=== PATIENT | female | born 1975 | race Caucasian/White ===

== ENCOUNTER → 2023-04-28 14:58 | Outpatient (CLI) | payer OTHER, SELFPAY ==
--- NOTE | 2023-04-28 15:04 | DI.CT.S_ITS ---
PROCEDURE: CT LUMBAR SPINE WO CON INDICATIONS: Spinal stenosis, lumbar region TECHNIQUE: Noncontrast 3 mm thick sections acquired from the T12 level to the sacrum. Sagittal and coronal reformats were constructed. For radiation dose reduction, the following was used: automated exposure control. COMPARISON: None. FINDINGS: Image quality: Excellent. Bones: There is normal bony alignment. No acute vertebral body compression fractures. No suspicious lytic or blastic bony lesions. No pars defects. T12-L1: Mild disc height loss. L1-L2: Mild disc height loss. L2-L3: Epidural lipomatosis and mild ligamentum flavum hypertrophy. L3-L4: Epidural lipomatosis and mild ligamentum flavum hypertrophy. L4-L5: Moderate disc height loss. Vacuum disc phenomenon. Broad-based disc bulge, with superimposed asymmetric disc bulge of the right subarticular space. Moderate spinal canal narrowing. Mild left neural foraminal narrowing. L5-S1: Moderate disc height loss, with disc osteophyte complex. Left greater than right facet arthrosis. Soft tissues: No retroperitoneal masses or hematomas. Visualized aorta is normal in caliber. IMPRESSION: Moderate spinal canal narrowing at L4-5 due to degenerative disc disease. [id number] degenerative changes, as above. Dictated by: Ariel Nascimento M.D. on 04/28/2023 at 15:39 Approved by: Ariel Nascimento M.D. on 04/28/2023 at 15:44
== END ==
PROVIDERS: Referring Provider Orthopaedic Surgery Orthopaedic Surgery of the Spine; Visit Provider Orthopaedic Surgery Orthopaedic Surgery of the Spine
DX: M48.061 Spinal stenosis, lumbar region without neurogenic claudication (principal); M51.36 Other intervertebral disc degeneration, lumbar region; M47.816 Spondylosis without myelopathy or radiculopathy, lumbar region; M47.817 Spondylosis without myelopathy or radiculopathy, lumbosacral region
CPT/HCPCS: 72131

== ENCOUNTER 2023-06-07 05:47 | Inpatient (IN) | payer OTHER, SELFPAY ==
[2023-05-31 13:39] VITALS: BMI 47.7
[2023-06-07] VITALS (13 sets, daily range): BP systolic 100–131; BP diastolic 51–81; PULSE 66–96; RESP 12–18; TEMP 36.2–37.3; O2SAT 93–98; BMI 48.1
[2023-06-07] MEDS: LACTATED RINGERS 1,000 ML 42 ML IV (07:11)
--- NOTE | 2023-06-07 07:48 | PM.PREOP ---
Pre-operative Note Interval Note History & Physical reviewed/Exam performed by Physician: Yes Changes to H&P: No
--- NOTE | 2023-06-07 07:52 | P.HP_ITS ---
History of Present Illness History of Present Illness Date Patient Seen: 06/07/23 Time Patient Seen: 07:30 Date of Onset of Symptoms: 06/18/21 Chief complaint: back and leg pain Narrative: Fatimah is a 47 year old woman with chronic back pain. Onset was 09/12/2008 with no known incident. Symptoms improved for 5-6 years, and are now increasing. Patient notes constant low back pain the radiates down left lower extremity. Activities of daily living are difficult. Patient has been utilizing NSAIDS for pain, water aerobics, CBD, ice, and heat. Patient has been attending physical therapy since 12/15/2022. She notes no improvement. [facility] Medical History Anxiety Depression Spondylolisthesis Lumbar post-laminectomy syndrome Chronic sinusitis Pre-diabetes HLD (hyperlipidemia) BUSTER on CPAP Seasonal allergies Sciatica Surgical History History of orthopedic surgery (2002) History of arthroscopy of left shoulder (2004) Hx of laminectomy (2007) Hx of sinus surgery Hx of bariatric surgery (2003) Hx of cholecystectomy Hx of appendectomy History of surgery (2019) Social History household members: spouse and family Smoking Status: Never smoker alcohol intake: former Meds Home Medications and Allergies Home Medications Medication Instructions Recorded Confirmed Type acetaminophen 500 mg tablet 1,000 mg PO TID-QID 05/31/23 06/07/23 History bupropion HCl 450 mg 24 hr tablet, 450 mg PO BEDTIME 05/31/23 06/07/23 History extended release buspirone 30 mg tablet 30 mg PO BID 05/31/23 06/07/23 History cetirizine 10 mg tablet (Zyrtec) 10 mg PO DAILY 05/31/23 06/07/23 History cholestyramine-aspartame 4 gram 4 g PO BID 05/31/23 06/07/23 History oral powder (Cholestyramine Light) fenofibrate 160 mg tablet 160 mg PO DAILY 05/31/23 06/07/23 History pregabalin 200 mg capsule 200 mg PO TID 05/31/23 06/07/23 History propranolol 40 mg tablet 40 mg PO BID 05/31/23 06/07/23 History sertraline 100 mg tablet 100 mg PO BEDTIME 05/31/23 06/07/23 History tizanidine 4 mg tablet 4 mg PO TID 05/31/23 06/07/23 History atorvastatin 40 mg tablet 40 mg PO DAILY 06/07/23 06/07/23 History Allergies Allergy/AdvReac Type Severity Reaction Status Date / Time soy Allergy Severe Vomiting, Verified 06/07/23 06:28 diarrhea Sulfa (Sulfonamide Allergy Severe Anaphylaxis Verified 06/07/23 06:28 Antibiotics) latex Allergy Intermediate Rash Verified 06/07/23 06:28 Review of Systems Review of Systems ROS: Yes All systems reviewed with the patient and are negative except as otherwise documented Exam Vital Signs (past 8 hours): - 06/07/23 06:50 Temperature 97.2 F L Pulse Rate 96 H Respiratory Rate 17 Blood Pressure 120/71 Pulse Oximetry 96 Oxygen Delivery Method Room Air Oxygen Delivery Method Room Air Back/Spine/Pelvis Other: painful lumbar range of motion, worst at L-S junction. Surgical scar from previous lumbar surgery well healed, no erythema, induration. Assessment & Plan Assessment & Plan narrative: Patient had history of L4-5 laminectomy in 2008. She has spondylolisthesis at L4-5 level and severe DDD and foramen stenosis at L5-S1. I scheduled her for L4-S1 TLIF. Her surgery request was denied by her insurance. Patient had history of laminectomy at L4-5 with residual spinal stenosis and epidural scarring. She has L4-5 spondylolisthesis at both L4-5 and L5-S1 level. She has been falling recently due to worsening leg weakness not responding to conservative care including PT and medications for over 3 months. She may benefit from decompression and fusion surgery in order to address her spondylolisthesis and spinal stenosis at L4-5, L5-S1 level. Risks for surgery include but not limited to bleeding, infection, nerve/dura/bladder/bowel/blood vessel injury, need for additional procedure, even . Patient understands and would like to proceed with surgery. I scheduled her for L4-S1 TLIF. 15 minutes spent with patient, >50% counseling about her condition, limitations, prognosis.
[2023-06-07] MEDS: CEFAZOLIN VIAL 3 GM in SODIUM CHLORIDE 0.9% 100 ML IV ×3 (07:57→23:47)
--- NOTE | 2023-06-07 08:30 | SUR.OPER ---
Prone on spine table, head in foam head support, padded chest and pelvic supports, gel pad at knees, lower legs supported by pillows; nipples, genitalia and toes free of pressure, arms secured on foam padded arm boards at <90 degrees abduction. Tape over blanket at thigh secured to table.
[2023-06-07] MEDS: BUPIVACAINE LIPOSOME 266 MG/20 ML VIAL INJ (08:37)
[2023-06-07] MEDS: BUPIVACAINE 0.25% (PF) 60 ML, EPINEPHrine 0.15 MG INJ (08:42)
--- NOTE | 2023-06-07 12:00 | DI.RAD.S_ITS ---
PROCEDURE: XR LUMBAR SPINE 2-3V INDICATIONS: L4-5, L5-S1 TLIF ROBOT TECHNIQUE: 2 intraoperative views of the lumbar spine were acquired. COMPARISON: None. FINDINGS: 2 intraoperative spot views of the lumbar spine is performed. IMPRESSION: Intraoperative imaging demonstrates lumbosacral fusion hardware placement. Dictated by: Maximus Staton M.D. on 06/07/2023 at 16:11 Approved by: Maximus Staton M.D. on 06/07/2023 at 16:11
--- NOTE | 2023-06-07 12:12 | P.OP_ITS ---
Operative Date/Time/Diagnoses Date of procedure: 06/07/23 Time of procedure: 07:40 Pre-op diagnosis: 1. L4-5, L5-S1 recurrent disc herniation 2. L4-5, L5-S1 post laminectomy with residual spinal stenosis 3. L4-5, L5-S1 spondylolisthesis 4. Morbid obesity Post-op diagnosis: same Procedure & Clinicians Procedure: 1. L4-5, L5-S1 Postero-lateral and posterior interbody fusion 2. L4-5, L5-S1 interbody cage placement. 3. L4-5, L5-S1 decompressive laminectomy with bilateral facetecomies 4. L4-5, L5-S1 Posterior segmental instrumentation 5. [place] of bone marrow from iliac crest 6. Utilization of microsurgical technique and operating microscope 7. Utilization of robotic assisted navigation Same procedure as scheduled: Yes Indications: Ms. Chun is here for scheduled lumbar fusion procedure. She has equally limiting leg pain, weakness and back pain due to lumbar spondylolisthesis and recurrent disc herniation with history of la minectomy/discectomy in the past at L4-5, L5-S1 level. She failed over 3 months of conservative care including 6 weeks of PT, NSAIDs, muscle relaxant, lyrica. She may benefit from decompression and fusion surgery with laminectomies and total facetectomies for decompression at L4-5, L5-S1 level, which will render her already unstable L4-S1 level grossly unstable and require a fusion procedure at the same time. Patient is scheduled for L4-5, L5-S1 TLIF. Surgeon: Ari Rodriguez Managing Partner [employer] [place]: Nette Segura Click Yes if Unassisted: No Anesthesia Type: General Operative Notes Closure Type: primary Specimen(s): none sent Prosthetic devices, grafts, tissues, transplants, or devices: Globus CREO MIS screws, Rise cages Applied: catheter Estimated Blood Loss (mL): 150 Blood products transfused: none Procedure in detail: Patient was seen in the preoperative area. Risks and benefits of the surgery was discussed with the patient. Informed consent was obtained from the patient and placed in the chart. Surgical site was marked. Patient was taken to the operative room. General anesthesia was administered. Prophylactic antibiotic was given to the patient less than 30 min before the incision was made. Patient was placed into a prone position on the [place] table. Patient's back was then prepped and draped in the sterile fashion. Time-out was performed at this time. After patient was prepped and draped, patient's PSIS was palpated and marked bilaterally. Small 1 cm incision was made over the PSIS for placement of the reference probes. Two trocar was placed into the PSIS 1 on each side. The reference probe was attached to the trocar of the reference apparatus. At this time the C-arm imaging was used to confirm AP and lateral of L4-L5, L5- S1 vertebrae and merged the C-arm imaging using the [employer] navigation system with the CT of the lumbar spine. After successful merging was completed and confirmed, skin marker was used to brittanie out the skin incision using the [employer] robotic arm. Bilateral incision was made at this time. Pre templated trajectory was used and guided using the [employer] robotic navigation system for bilateral L4, L5, S1 pedicle screw placement. This was done by using the robotic arm to guide the high-speed bur to make a cortical entry point. Next a drill was placed also using the robotic arm and guided using the navigation system drilling partially through bilateral L4, L5 and S1 pedicles. Next L4, L5, S1 pedicle screws it was pre templated and measured was placed onto the power scoop driver and inserted into the pedicles bilaterally. After all 6 screws were placed C-arm imaging was taken of both AP and lateral to confirm the placement. Excellent placement of the screws were confirmed and a matched precisely with the pre planned screw placement using the navigation system. MARs retractor was inserted using [employer] guidence. Globus MARS retractors was placed inside the incision and docked onto the L4 and L5 lamina. Using microsurgical technique and operating microscope, a L4, L5 laminectomy and L4-5, L5-S1 facetectomy was performed using a Kerrison rongeur. The laminectomy and facetectomy was performed in order to decompress patient's cauda equina as well as the nerve roots exiting at the L4-5, L5-S1 level. Patient was found have severe lateral recess and neural foramen stenosis which was fully decompressed after the laminectomy facetectomy. Patient was found to significant amount of epidural lipomatosis which was carefully resected during the process of laminectomy and facetectomy. This facilitated additional decompression to the epidural space at L4-5 L5-S1 level. More than 75% of the facets were removed during the process of decompression rendering L4-5, L5-S1 level grossly unstable and required a fusion procedure at the same time you order to address the pre-existing spondylolisthesis as well as the current instability after the decompression. The disc space at L4-5, L5-S1 was identified, and a total diskectomy was performed at L4-5, L5-S1 level. The endplates were decorticated using a rasp and shaver. The total diskectomy and decortication was performed at L4-5, L5-S1 level in order to to accomplish a L4-5, L5-S1 fusion. The local bone from the laminectomy and facetectomy was saved for local bone grafting. After the total diskectomy and decortication was completed, DBM bone graft material was combined with local bone that was harvested earlier. At this time, a separate skin is incision was made over the iliac crest. A Jamshidi needle was inserted into the iliac crest through a separate skin incision. 5 cc of bone marrow aspiration was obtained through the separate skin incision using a Jamshidi needle from the iliac crest. The bone marrow aspiration was combined with local bone and the DBM bone grafting material. The bone grafting material was placed into the L4-5, L5-S1 interbody space along with a expandable cage. The cage was expanded to its maximum height using the torque limiting screwdriver. The disc preparation as well as the cage insertion were also performed under navigation guidance. After the cage was placed, AP and lateral C-arm imaging was taken to confirm placement of the cage and excellent position was confirmed. Globus MARS retractor was inserted and docked onto the L4-5, L5-S1 posterolateral gutter on the right side. Using the power drill, posterior- lateral decortication was performed at L4-5, L5-S1 level until bleeding cortical bone was identified. The remaining bone grafting material was placed into the L4-5, L5-S1 posterior lateral gutter he order to accomplish posterolateral fusion at the L4-5, L5-S1 level. At this time the t[place]ips were attached to the L4, L5, S1 pedicle screw shanks. After measuring the length of the rods, they were inserted into the tulips of the pedicle screws and locked in place using locking caps and torque limiting screwdriver bilaterally. Total 6 caps and 2 titanium rods was used in order to complete the posterior instrumentation construct. After all the hardware was placed, and confirmed with AP and lateral C-arm imaging, the wound was then irrigated with sterile normal saline and packed with Ray-Gabe gauze for 3 min to accomplish hemostasis. After the gauze was removed the deep fascia was closed with #1 Vicryl suture. The subcutaneous layer was closed with 2-0 Vicryl. The skin was closed with skin jude. Patient tolerated the procedure well. There were no complications. Neuro monitoring system was used to monitor patient's neurologic status throughout entire procedure. There was no disturbance of the neural monitoring signals throughout the case. The Operation could not have been safely performed without compromising the technical result or length of the procedure, without the assistance of a skilled surgical sales representative. The surgical sales representative was medically necessary for proper positioning, retraction and manipulation of instruments, proper exposure, surgical preparation, and manipulation of tissue. Complications: none Post-operative Condition: stable Disposition: PACU Plan for aftercare: Admit to inpatient hospital
[2023-06-07] MEDS: HYDROMORPHONE 1 MG INJ IV ×2 (12:36→12:42)
[2023-06-07] MEDS: LACTATED RINGERS 1,000 ML 125 ML IV ×2 (13:37→23:24)
[2023-06-07] MEDS: HYDROMORPHONE 0.5 MG INJ IV ×2 (14:19→16:19)
[2023-06-07] MEDS: ONDANSETRON 4 MG/2 ML INJ IV (14:22)
[2023-06-07] MEDS: hydrOXYzine pamoate 25 MG CAPSULE PO ×2 (14:22→21:10)
[2023-06-07] MEDS: PREGABALIN 50 MG CAPSULE 200 MG PO ×2 (14:22→21:10)
[2023-06-07] MEDS: TIZANIDINE 4 MG TABLET PO ×2 (15:54→21:11)
--- NOTE | 2023-06-07 19:53 | PC.NURSE ---
new admit: tlif w/ Dr Rodriguez. L4 dressing to low back is CDI. patient is a/o, voices needs. has red scratches on her left cheek from tape/tubing from surgery. patient reports 6/10 LBP, medicated w/ PRN dilauded IVP, vistaril, zofran. has own bipap in the room, this was set up by this RN. patient uses this for naps and at NOC. desatting to high 90s. CPOX on, WCTM 1800: tolerated OOB to BSC for BM. took mod/max 1pa to get from laying to sitting, following log roll instructions. denies dizziness or nausea. soft b/p, 100/60's. jenna is patent, will be d/c'd in AM. LR at 125 via PIV. tolerated 1st dose ABX. bed alarm is on, call light w/in reach.
[2023-06-07] MEDS: OXYCODONE IR 10 MG TABLET PO ×2 (19:55→23:39)
[2023-06-07] MEDS: BUSPIRONE 5 MG TABLET 30 MG PO (21:10)
[2023-06-07] MEDS: buPROPion XL 150 MG TAB 450 MG PO (21:10)
[2023-06-07] MEDS: SERTRALINE 50 MG TABLET 100 MG PO (21:10)
[2023-06-08 00:50] VITALS: BP 106/57; RESP 18; TEMP 36.7
[2023-06-08] MEDS: OXYCODONE IR 10 MG TABLET PO ×3 (04:09→13:50)
[2023-06-08] MEDS: HYDROMORPHONE 0.5 MG INJ IV ×4 (05:18→19:44)
[2023-06-08 05:33] LABS: Hematocrit 27.2 % (36-46); Hemoglobin 9.2 g/dL (12.0-16.0)
[2023-06-08 05:46] VITALS: BP 116/63; PULSE 76; RESP 20; TEMP 36.6; O2SAT 95
[2023-06-08 08:00] VITALS: BP 105/54; PULSE 75; RESP 16; TEMP 35.9; O2SAT 95
--- NOTE | 2023-06-08 09:27 | PT.IIE ---
Addendum entered and electronically signed by Kashmir Newman PT 06/08/23 17:02: ISigned Original Note: Addendum entered and electronically signed by Kashmir Newman PT 06/08/23 17:00: Added gait/ambulation goal to include LRAD. Addendum entered and electronically signed by Kashmir Newman PT 06/08/23 11:27: FWW for transfer and gait goals. Original Note: Current Diagnoses Spondylolisthesis, lumbar region (06/07/23) Postlaminectomy syndrome, not elsewhere classified (06/07/23) Surgery Performed Operation Date: 06/07/23 07:45 Actual Procedures p L4-5, L5-S1 TLIF with posterior instrumentation -Robot - Ari Rodriguez MD Surgical History (Last Reviewed 06/07/23 @ 07:52 by Ari Rodriguez MD) History of arthroscopy of left shoulder (2004) History of orthopedic surgery (2002) History of surgery (2019) Hx of appendectomy Hx of bariatric surgery (2003) Hx of cholecystectomy Hx of laminectomy (2007) Hx of sinus surgery Medical History (Last Reviewed 06/07/23 @ 07:52 by Ari Rodriguez MD) Anxiety Chronic sinusitis Depression HLD (hyperlipidemia) Lumbar post-laminectomy syndrome BUSTER on CPAP Pre-diabetes Sciatica Seasonal allergies Spondylolisthesis Physical Therapy Inpatient Evaluation/Re-Eval M1 PT/OT-IP Prior Functional Status Start: 06/08/23 10:40 Freq: NEEDED Status: Active Protocol: Document 06/08/23 10:41 AB (Rec: 06/08/23 11:06 AB [id number]) Medical Review Prior Functional Status Medical History Reviewed Yes Diet/Fluid Consistency Regular Communication Pt is able to express all needs. Mobility and Gait Pt reports she ambulated independently in home but would furniture surf occasionally, and used a walking stick when walking outside. Activities of Daily Living and IADL's Pt is independent with all ADLs and IADLs. 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 Social History Household Members spouse,family Living Arrangements House Number of Floors (Floors) Two Floors Number of Stairs To Enter/Railing? 4 FRANCO with right ascending hand rail Home Environment High Toilet,Walk in Shower Home Equipment Four Wheel Walker,Hand Held Shower Additional Social History Comment Pt reports her can provide 24/7 assist if needed, and she is able to take time off from work. She has a chair lift to get to and from second floor (12-14 steps). Her bed is also adjustable M2 PT-IP Current Condition Start: 06/08/23 10:40 Freq: NEEDED Status: Active Protocol: Document 06/08/23 10:41 AB (Rec: 06/08/23 11:06 AB [id number]) Physical Therapy Current Condition Current Condition Evaluation Date 06/08/23 Treatment Diagnosis s/p lumbar TLIF L4-L5, L5-S1 Onset Date 06/07/23 M3 PT-IP Subjective Start: 06/08/23 10:40 Freq: NEEDED Status: Active Protocol: Document 06/08/23 10:41 AB (Rec: 06/08/23 11:06 AB [id number]) Subjective Physical Therapy Visit Type Type Initial Evaluation Visit Start Time 08:47 Visit Stop Time 09:27 Total Visit Minutes 40 Physical Therapy Visit Comments Patient Comments Pt presents sidelying in bed and is agreeable to PT eval this morning. Therapy Pain Assessment Pain When Pain Assessed During Mobility Pain Present Pain Present Pain Reported Location back Scale Used did not specify on numeric scale Pain Behaviors Facial Grimacing,Wincing Pain Management Techniques Distraction,Re-positioning M4 PT-IP Mobility and Gait Start: 06/08/23 10:40 Freq: NEEDED Status: Active Protocol: Document 06/08/23 10:41 AB (Rec: 06/08/23 11:06 AB [id number]) PT-Bed Mobility Assessment Rolling Type of Rolling Log Rolling Level of Assist Standby Assistance Supine to Sit Supine to Sit Minimal Assistance,Moderate Assistance,1 Person Assistance ,Head of Bed Elevated Sit to Supine Sit to Supine Minimal Assistance,Moderate Assistance,1 Person Assistance Scooting Scooting to Edge of Bed Minimal Assistance PT-Transfer Assessment Sit to and From Stand Sit to and from Stand Standby Assistance,Use of Upper Extremities Equipment Transfer Assistive Device Gait Belt,Front Wheeled Walker Transfers Transfer Destination Bed Transfer Technique ambulated Transfer Ability Level of Assist Standby Assistance,1 Person Assistance,Use of Upper Extremities Comments Mobility Comments The pt is able to perform log roll with SBA, but then required min-modA to get to sitting with PT assisting trunk due to weakness and pain symptoms. Once sitting, the pt denies any dizziness symptoms. She then requires assistance to move legs to get to EOB, as this bed is higher than her bed at home. The pt then performed STS with SBA, with PT providing cues for proper hand placement, and again denies symptoms of dizziness. The pt then ambulated 50ft with FWW and SBA and returned to room. She then requires min-modA to perform log roll back to supine position with PT assisting LEs. The pt is then assisted to a comfortable position in bed with tray table in front, call light within reach, all needs met. RN was notified of findings. Gait Assessment Gait Gait Assistance Required: Standby Assistance Distance (Feet) 50 Assistive Devices Assistive Device Gait Belt,Front Wheeled Walker Gait Deviations General Gait Pattern Decreased Stride Length, Decreased Feet Clearance Factors Limiting Gait Function Factors Limiting Gait Function Decreased Activity Tolerance, Decreased Strength,Pain Comments Gait Comments See mobility comments above. Pt takes shorter steps due to weakness and pain symptoms. Stair Climbing Assessment Comments Stair Climbing Comments Not assessed d/t weakness and fatigue. PT-Balance Assessment Sitting Balance and Reactions Static Sitting Balance Ability Normal Dynamic Sitting Balance Ability Normal Standing Balance and Reactions Static Standing Balance Ability Good Dynamic Standing Balance Ability Good Device Used FWW M5 PT-IP Objective Assessments Start: 06/08/23 10:40 Freq: NEEDED Status: Active Protocol: Document 06/08/23 10:41 AB (Rec: 06/08/23 11:06 AB [id number]) Orientation Orientation/Cognition Level of Alertness Alert Orientation Name,Age,Birthday,Month,Date, Year,Day of Week,Place, Situation Language Function Ability No Deficits Noted Safety Awareness Understands Safety Issues Memory Description No Deficits Noted Gross Range of Motion Upper Extremity ROM Assessment Within Functional Limits Lower Extremity ROM Assessment Within Functional Limits Strength Upper Extremity Strength Assessment Within Functional Limits Lower Extremity Strength Assessment Within Functional Limits M6 PT-IP Treatment Start: 06/08/23 10:40 Freq: NEEDED Status: Active Protocol: Document 06/08/23 10:41 AB (Rec: 06/08/23 11:06 AB [id number]) Physical Therapy Treatment Education Education Provided Precautions,Weight Bearing Status,Post-Op Packet,Safety Brace Education Patient M7 PT-IP Assessment and Plan Start: 06/08/23 10:40 Freq: NEEDED Status: Active Protocol: Document 06/08/23 10:41 AB (Rec: 06/08/23 11:06 AB [id number]) PT Summary Assessment and Plan Potential Rehabilitation Potential Good Summary Impairments Pain,ROM,Strength,Balance,Bed Mobility,Transfers,Gait, Activity Tolerance Assessment Summary Fatimah Chun is a 48 year old female patient who is s/p lumbar TLIF L4-L5, L5-S1 on 06/07/23. She currently requires min-modA x1 to perform bed mobility, but is able to perform STS, transfers and ambulation with FWW and SBA. The pt was able to ambulate up to 50ft this session, but was unable to attempt stairs due to weakness , fatigue and pain symptoms. Based on her current level of function, the pt is expected to continue to progress and is expected to be able to discharge to home with assistance, however discharge disposition should continue to be assessed as pt progresses. She may benefit from skilled PT in the future to improve her post operative outcomes. Goals Bed Mobility Goal Standby Assistance Transfer Goal Independent Gait Goal Independent Gait Distance 100 Other Goals Pt to be able to ascend/ descend 4 steps with right hand rail with SBA to show improving strength and tolerance to activity. Pt to be able to perform bed mobility with independence to show improving level of function. Days to Meet Goals 5 Frequency of Treatment Frequency Of Treatment Twice a Day Treatment Plan Physical Therapy Treatment Plan Bed Mobility Training,Transfer Training,Gait Training, Therapeutic Exercise,Balance Retraining,Post Op Education, Discharge Planning,Hot or Cold Pack,Neuromuscular Re-ed, Coordination Retraining,Manual Therapy Other Recommendations and Next Treatment Bed mobility training, stairs Focus Precautions Lumbar Precautions Log Roll,No Twisting,Limit Bending,Lifting Restriction of 10 lbs,Gait Belt above Incisional Area Weight Bearing Status Weight Bearing Status Weight Bear as Tolerated Recommendations To Nursing Amount of Assist Needed 1 Person Assist Discharge Recommendations PT Discharge Recommendations Home with Assistance Equipment Needed for Home Before FWW Discharge Transportation Needs at Discharge Private Vehicle,Wheelchair/ Cabulance
[2023-06-08] MEDS: PREGABALIN 50 MG CAPSULE 200 MG PO ×3 (09:49→20:15)
[2023-06-08] MEDS: PROPRANOLOL 10 MG TABLET 40 MG PO (09:49)
[2023-06-08] MEDS: FENOFIBRATE, MICRONIZED 67 MG CAPSULE 134 MG PO (09:50)
[2023-06-08] MEDS: BUSPIRONE 5 MG TABLET 30 MG PO ×2 (09:51→20:15)
[2023-06-08] MEDS: ATORVASTATIN 20 MG TABLET 40 MG PO (09:51)
[2023-06-08] MEDS: ACETAMINOPHEN 325 MG TABLET 650 MG PO (09:51)
[2023-06-08] MEDS: CHOLESTYRAMINE/ASPARTAME 4 GM PACK PO ×2 (09:52→16:53)
[2023-06-08] MEDS: LORATADINE 10 MG TABLET PO (09:52)
--- NOTE | 2023-06-08 11:16 | OT.IP.EVAL ---
Current Diagnoses Spondylolisthesis, lumbar region (06/07/23) Postlaminectomy syndrome, not elsewhere classified (06/07/23) Surgery Performed Operation Date: 06/07/23 07:45 Actual Procedures p L4-5, L5-S1 TLIF with posterior instrumentation -Robot - Ari Rodriguez MD Past Medical History (Last Reviewed 06/07/23 @ 07:52 by Ari Rodriguez MD) Anxiety Chronic sinusitis Depression HLD (hyperlipidemia) Lumbar post-laminectomy syndrome BUSTER on CPAP Pre-diabetes Sciatica Seasonal allergies Spondylolisthesis Surgical History (Last Reviewed 06/07/23 @ 07:52 by Ari Rodriguez MD) History of arthroscopy of left shoulder (2004) History of orthopedic surgery (2002) History of surgery (2019) Hx of appendectomy Hx of bariatric surgery (2003) Hx of cholecystectomy Hx of laminectomy (2007) Hx of sinus surgery Occupational Therapy Inpatient Evaluation/Re-Eval M1 PT/OT-IP Prior Functional Status Start: 06/08/23 12:57 Freq: NEEDED Status: Active Protocol: Document 06/08/23 11:16 [facility] (Rec: 06/08/23 13:16 [facility] [id number]) Medical Review Prior Functional Status Medical History Reviewed Yes Diet/Fluid Consistency Regular Communication Pt is able to express all needs. Mobility and Gait Pt reports she ambulated independently in home but would furniture surf occasionally, and used a walking stick when walking outside. Activities of Daily Living and IADL's Pt is independent with all ADLs and IADLs but needing increased time to complete due to her pain. 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 Social History Household Members spouse,family Living Arrangements House Number of Floors (Floors) Two Floors Number of Stairs To Enter/Railing? 4 FRANCO with right ascending hand rail Pt has a chair lift to get to the second floor to the bedroom and bathroom. Home Environment High Toilet,Walk in Shower Home Equipment Four Wheel Walker,Hand Held Shower Additional Social History Comment Pt reports her can provide 24/7 assist if needed, and she is able to take time off from work. She has a chair lift to get to and from second floor (12-14 steps). Her bed is also adjustable M2 OT-IP Current Condition Start: 06/08/23 12:57 Freq: Status: Active Protocol: Document 06/08/23 11:16 [facility] (Rec: 06/08/23 13:16 [facility] [id number]) Occupational Therapy Current Condition Current Condition Evaluation Date 06/08/23 Treatment Diagnosis S/P L4-5, L5-S1 TLIF Diagnosis Onset Date 06/07/23 Post Operative Precautions Lumbar Precautions Log Roll,No Twisting,Limit Bending,Lifting Restriction of 10 lbs,Gait Belt above Incisional Area M3 OT- IP Subjective and Pain Start: 06/08/23 12:57 Freq: Status: Active Protocol: Document 06/08/23 11:16 [facility] (Rec: 06/08/23 13:16 [facility] [id number]) OT- Subjective Occupational Therapy Visit Type Type Initial Evaluation Visit Start Time 11:16 Visit Stop Time 11:55 Total Visit Minutes 39 Occupational Therapy Visit Comments Patient Comments Pt agreed to get up to use the bathroom. Patient/Caregiver Goals TO go home. OT Pain Assessment Pain When Pain Assessed At Rest Pain Present Pain Present Pain Reported Location back Intensity 6 Scale Used Numeric (0 - 10) M4 OT- IP ADL's Start: 06/08/23 12:57 Freq: Status: Active Protocol: Document 06/08/23 11:16 [facility] (Rec: 06/08/23 13:16 [facility] [id number]) OT [id number] General Evaluation Self-Feeding Ability Independent OT ADL-Grooming Comments OT Grooming Comments Pt able to coroner/medical examiner front of the sink with FWW to wash her hands. OT ADL-Oral Care Comments Oral Care Comments Pt states wanting to do later after lunch. Educated best to spit into a cup or hinge at her hips to best follow her back precautions. OT ADL-Dressing General Eval Lower Body Dressing Ability Standby Assistance Areas Needing Assistance Socks Comments OT Dressing Comments Pt able to use lab support tech and sock aid to veronica/doff her socks. Pt states her will be able to assist her at home. OT ADL-Toileting General Evaluation Toileting Ability Minimal Assistance Comments OT Toileting Comments GRISEL for completeness and to help pull up the brief in the back. OT ADL-Bathing Comments OT Bathing Comments Pt would benefit from a shower chair at home. M5 OT- IP IADL's Start: 06/08/23 12:57 Freq: Status: Active Protocol: Document 06/08/23 11:16 [facility] (Rec: 06/08/23 13:16 [facility] [id number]) OT-Instrumental Activities of Daily Living Deficits IADL Deficits Identified Deficits Home Safety Awareness Awareness of Need for Assistance at Home Good Awareness Ability to Problem Solve Emergency Able to Problem Solve Situations Medication Management Medication Management Comments Pt's to assist her at home. Money Management Money Management Comments Pt's can asisst her at home as needed. Meal Preparation Meal Preparation Caregiver Provides Assist List Of First Job Ideas List Of First Job Ideas Caregiver Provides Assist M6 OT- IP Functional Cognition Start: 06/08/23 12:57 Freq: Status: Active Protocol: Document 06/08/23 11:16 [facility] (Rec: 06/08/23 13:16 [facility] [id number]) Cognitive Factors Limiting Selfcare Function Cognitive Ability Level of Alertness Alert Patient Orientation Name,Age,Birthday,Month,Date, Year,Day of Week,Place, Situation Attention Span Ability Capable of Focused Attention, Capable of Sustained Attention Ability to Follow Commands Able to Follow One Step Commands Cognitive Comments Cognitive Assessment Comments Pt able to follow commands for ADL and mobility needs. Pt needing cues to use her hands to help push up from surfaces. OT- Vision and Hearing OT- Hearing Assessment OT- Hearing Assessment WFL OT- Vision Assessment Visual Acuity Glasses For Reading M7 OT- IP Mobility and Balance Start: 06/08/23 12:57 Freq: Status: Active Protocol: Document 06/08/23 11:16 [facility] (Rec: 06/08/23 13:16 [facility] [id number]) OT- Bed Mobility Assessment Supine to Sit Supine to Sit Assist Moderate Assistance Scooting Scooting to Edge of Bed Moderate Assistance OT-Transfer Assessment Sit to and From Stand Sit to and from Stand Minimal Assistance,Moderate Assistance Transfers Transfer Ability Contact Guard Assistance Technique Transfer Destination Bed,Chair,Toilet Transfer Technique Stand Step Pivot Devices Transfer Assistive Devices Gait Belt,Front Wheeled Walker Comments Mobility Comments MODA to help get pt's trunk upright and to scoot to the edge of the bed. GRISEL to MODA to stand and pt insists to grab the FWW to stand. Once on her feet CGA to close SBA with the FWW. OT- Balance Assessment Sitting Balance and Reactions Static Sitting Balance Ability Good Dynamic Sitting Balance Ability Fair Standing Balance and Reactions Static Standing Balance Ability Fair Dynamic Standing Balance Ability Fair M9 OT- IP Assessment and Plan Start: 06/08/23 12:57 Freq: Status: Active Protocol: Document 06/08/23 11:16 [facility] (Rec: 06/08/23 13:16 [facility] [id number]) OT Summary Assessment and Plan Potential Rehabilitation Potential Good Analytic Complexity at Evaluation Low Summary OT Impairments Pain,Balance,Functional Mobility,Dressing,Toileting, Bathing,Toilet Transfers, Shower Transfers Progress Towards Goals Progressing Toward Goals Assessment Summary Pt low complexity and main barrier are pain and steps. Pt would benefit from LB dressing equipment, shower chair, BSC ,and FWW. Pt has a supportive to assist her at home when medically stable. Goals Grooming Goal Independent Dressing Goal Minimal Assistance Toileting Goal Independent Bathing Goal Standby Assistance Toilet Transfer Goal Independent Shower Transfer Goal Standby Assistance Days to Meet Goals 7 Frequency of Treatment Frequency Of Treatment Once a Day Treatment Plan OT Treatment Plan ADL Training,Functional Mobility,Patient/Family Education,Discharge Planning Other Treatment Recommendations and Next caregiver training Treatment Focus Discharge Recommendations OT Discharge Recommendations Home with Assistance Home Equipment Needs BSC, shower chair, LB dressing equipment, FWW Transportation Needs at Discharge Private Vehicle
[2023-06-08 13:32] VITALS: BP 129/73; PULSE 83; RESP 18; TEMP 37.2; O2SAT 95
[2023-06-08] MEDS: hydrOXYzine pamoate 25 MG CAPSULE PO (13:50)
[2023-06-08] MEDS: TIZANIDINE 4 MG TABLET PO ×2 (14:19→20:28)
--- NOTE | 2023-06-08 15:20 | PT.IPTN ---
Current Diagnoses Spondylolisthesis, lumbar region (06/07/23) Postlaminectomy syndrome, not elsewhere classified (06/07/23) Surgery Performed Operation Date: 06/07/23 07:45 Actual Procedures p L4-5, L5-S1 TLIF with posterior instrumentation -Robot - Ari Rodriguez MD Physical Therapy Treatment Note M2 PT-IP Current Condition Start: 06/08/23 10:40 Freq: NEEDED Status: Active Protocol: Document 06/08/23 10:41 AB (Rec: 06/08/23 11:06 AB [id number]) Physical Therapy Current Condition Current Condition Evaluation Date 06/08/23 Treatment Diagnosis s/p lumbar TLIF L4-L5, L5-S1 Onset Date 06/07/23 M3 PT-IP Subjective Start: 06/08/23 10:40 Freq: NEEDED Status: Active Protocol: Document 06/08/23 16:20 TS (Rec: 06/08/23 16:39 TS [id number]) Subjective Physical Therapy Visit Type Type Treatment Note Visit Start Time 15:20 Visit Stop Time 15:58 Total Visit Minutes 38 Number of PEDIATRIC IMMUNOLOGIST Visits 1 Physical Therapy Visit Comments Patient Comments Pt found resting in bed, reports pain is 7/10, is agreeable to PT. Therapy Pain Assessment Pain When Pain Assessed During Mobility Pain Present Pain Present Pain Reported Location back Intensity 7 Scale Used Numeric (0 - 10) Description With Movement Pain Behaviors Wincing Pain Management Techniques Distraction,Re-positioning M4 PT-IP Mobility and Gait Start: 06/08/23 10:40 Freq: NEEDED Status: Active Protocol: Document 06/08/23 16:20 TS (Rec: 06/08/23 16:39 TS [id number]) PT-Bed Mobility Assessment Rolling Type of Rolling Log Rolling Level of Assist Standby Assistance Supine to Sit Supine to Sit Moderate Assistance,1 Person Assistance,Head of Bed Elevated Sit to Supine Sit to Supine Standby Assistance,1 Person Assistance Scooting Scooting to Edge of Bed Contact Guard Assistance PT-Transfer Assessment Sit to and From Stand Sit to and from Stand Contact Guard Assistance,1 Person Assistance,Use of Upper Extremities Equipment Transfer Assistive Device Gait Belt,Front Wheeled Walker Comments Mobility Comments Pt recalled 3/3 spinal precautions prior to mobility. Supine to sit ModA for uprighting trunk, pt with difficulty pushing through RUE to fully upright. She required extra time and cues for scooting to EOB with use of handrails. She performed sit to stand with FWW CGA, denied any dizziness or lightheadedness, reports some weakness in RLE. She ambulated ~150' SBA with FWW and slwo step to gait with labored breathing, after ~75' pt requested to sit in w/c for rest break. Pt was brought to stairs, she performed steps x3 CGA and R rail support. Pt required cues for leading with strong LE and grasping both hands on rail. Pt ambulated back to room, sit to supine into bed SBA, pt demonstrated good carryover of logroll sequencing. Pt was left in bed , all needs met. Gait Assessment Gait Gait Assistance Required: Standby Assistance Distance (Feet) 150 Assistive Devices Assistive Device Gait Belt,Front Wheeled Walker Gait Deviations General Gait Pattern Decreased Stride Length, Decreased Feet Clearance Factors Limiting Gait Function Factors Limiting Gait Function Decreased Activity Tolerance, Decreased Strength,Pain Comments Gait Comments See mobility comments Stair Climbing Assessment Evaluation Level of Assist On Stairs Contact Guard Assistance,1 Person Assistance Devices Stair Climbing Assistive Devices Right Railing Technique/Endurance Stair Climbing Direction Ascend and Descend Stair Climbing Technique Step to Step Number of Steps Climbed 3 Comments Stair Climbing Comments See mobility comments. PT-Balance Assessment Sitting Balance and Reactions Static Sitting Balance Ability Good Dynamic Sitting Balance Ability Fair Standing Balance and Reactions Static Standing Balance Ability Good Dynamic Standing Balance Ability Fair Device Used FWW M5 PT-IP Objective Assessments Start: 06/08/23 10:40 Freq: NEEDED Status: Active Protocol: Document 06/08/23 10:41 AB (Rec: 06/08/23 11:06 AB [id number]) Orientation Orientation/Cognition Level of Alertness Alert Orientation Name,Age,Birthday,Month,Date, Year,Day of Week,Place, Situation Language Function Ability No Deficits Noted Safety Awareness Understands Safety Issues Memory Description No Deficits Noted Gross Range of Motion Upper Extremity ROM Assessment Within Functional Limits Lower Extremity ROM Assessment Within Functional Limits Strength Upper Extremity Strength Assessment Within Functional Limits Lower Extremity Strength Assessment Within Functional Limits M6 PT-IP Treatment Start: 06/08/23 10:40 Freq: NEEDED Status: Active Protocol: Document 06/08/23 16:20 TS (Rec: 06/08/23 16:39 TS [id number]) Physical Therapy Treatment Education Education Provided Precautions,Weight Bearing Status,Post-Op Packet,Safety M7 PT-IP Assessment and Plan Start: 06/08/23 10:40 Freq: NEEDED Status: Active Protocol: Document 06/08/23 16:20 TS (Rec: 06/08/23 16:39 TS [id number]) PT Summary Assessment and Plan Potential Rehabilitation Potential Good Summary Impairments Pain,ROM,Strength,Balance,Bed Mobility,Transfers,Gait, Activity Tolerance Progress Towards Goals Progressing Toward Goals Assessment Summary Fatimah is making good progress with her mobility this session. She continues to require ModA for supine to sit, she has poor UE strength to upright her trunk. She is CGA for sit to stands x2 with FWW. She progressed her gait to ~150'SBA, has some labored breathing, denied any dizziness or lightheadedness. She progressed to stairs x3 CGA with max cueing for sequencing. PT is recommending return home with 24/7 assist. Pt may need FWW before d/c Goals Bed Mobility Goal Standby Assistance Transfer Goal Independent,Front Wheeled Walker Gait Goal Independent,Front Wheel Walker Gait Distance 100 Other Goals Pt to be able to ascend/ descend 4 steps with right hand rail with SBA to show improving strength and tolerance to activity. Pt to be able to perform bed mobility with independence to show improving level of function. Days to Meet Goals 5 Frequency of Treatment Frequency Of Treatment Twice a Day Treatment Plan Physical Therapy Treatment Plan Bed Mobility Training,Transfer Training,Gait Training, Therapeutic Exercise,Balance Retraining,Post Op Education, Discharge Planning,Hot or Cold Pack,Neuromuscular Re-ed, Coordination Retraining,Manual Therapy Other Recommendations and Next Treatment Bed mobility training, stairs Focus Precautions Lumbar Precautions Log Roll,No Twisting,Limit Bending,Lifting Restriction of 10 lbs,Gait Belt above Incisional Area Weight Bearing Status Weight Bearing Status Weight Bear as Tolerated Recommendations To Nursing Amount of Assist Needed 1 Person Assist Discharge Recommendations PT Discharge Recommendations Home with Assistance Equipment Needed for Home Before FWW Discharge Transportation Needs at Discharge Private Vehicle
--- NOTE | 2023-06-08 16:27 | CM.DANOTE ---
Brief DCP Assessment note Patient is a 48yo F here following TLIF with Dr. Rodriguez on 06.07.[address] Anika Burk and self pay DITCH RIDER reviewed EMR. DITCH RIDER unable to meet with patient today due to triaging needs. Per PT/OT, rec home with assistance. Per chart, lives with spouse in [place]. Per DRAINLAYER Emir, plan is for caregiver training in afternoon and anticipate d/c tomorrow afternoon with family. No needs identified at this time. Plan: home with spouse when medically stable, likely tomorrow afternoon. CM team will continue to follow as needed. PATI Lara Discharge Planning/Care Management CM Discharge Assessment Start: 06/08/23 16:24 Freq: Status: Active Protocol: Document 06/08/23 16:24 (Rec: 06/08/23 16:27 [id number]) Discharge Planning Assessment Assigned Clinical Academic Allergist PATI Gee DPOA/Assigned Designee Name Dorothea Chun (spouse) Contact Information [phone] Advance Directives? No History Provided By Medical Record Prior Living Arrangements House Household Members spouse,family Type of transporation used prior to Drives own vehicle admit Independent with ADL's Yes Is patient alert and oriented? Yes Comment used walking stick Barriers to Discharge No Discharge Plan Home Transportation Arrangement likely spouse in POV Whiteboard Updated in Patient Room with No name and ext. # of Clinical Academic Allergist Review Status In Process Next Review Type Continued Stay Review Pre-Anesthesia Assessment Start: 05/31/23 13:39 Freq: Status: Active Protocol: Document 05/31/23 13:39 CAB (Rec: 05/31/23 14:31 CAB [id number]) Pre-Anesthesia Assessment Preferred Name Fatimah Patient Information Reviewed Via Phone Assessment Assessment Completed With Patient Diagnostic Results BMP/CMP,CBC,EKG Comment Outside labs/EKG scanned Primary Care Provider Familia Donaldson Seen Specialist in Last 12 Months Yes Specialist Seen Orthopedist,Other Comment GI Primary Language Greek Criminal Defense Attorney Required No Height 167.64 cm Weight 134.263 kg Body Mass Index (BMI) 47.7 Hearing Ability Normal Visual Assist Glasses Dentition Type Teeth, Natural Present Barriers to Learning None Hx Anesthesia Reactions No Hx Family Anesthesia Reaction No Hx Malignant Hyperthermia No Hx Blood Transfusions Yes: r/t anemia 2004 Hx Blood Transfusion Reaction No Anesthesia Review Requested No Vendor Quality Supervisor No alcohol intake former Smoking Status Never smoker Substance Use Type marijuana Comment Edibles only Pain Present Pain Reported Musculoskeletal Symptoms Abnormal Gait,Back Pain,Muscle Weakness,Radiating Pain into Limb History of Falling (Recent or History of Yes ) Patient is completely paralyzed or No completely immobile Mental Status Oriented to own ability Comment Walking stick within the home. Is patient on oxygen? No Does patient have WOODS/SOB No Hx Sleep Apnea Yes CPAP/BIPAP use prescribed and used routinely Will Bring CPAP/BIPAP DOS Yes Currently Taking a Beta Sergio Yes: Propranol Can You Climb a Flight of Stairs Without Yes SOB Hx Chest Pain No Hx SOB No Hx Syncope or Dizziness No Anti-Coagulant Therapy No Has a Sales Incentive Analyst No Cardiac Testing No Hx Pacemaker/ICD No Pacemaker Rep Required? No Cardiac Clearance Received Not Applicable Diet Type At Home Regular Dysphagia No Gastrointestinal Symptoms Bloating Chronic UTI No Urinary Catheter Present No Hx Urinary Self Catheterization No Diabetes No: Pre-diabetes Patient No Lactating No Hx Drug Resistant Organism Yes: C-diff within 2 years, 10 years prior Presence of External or Internal Medical Yes: Lap band, CPAP Devices Received a COVID vaccine? Yes Received all doses? No Marital Status Lives With spouse,family Current Living Arrangements House Number of Floors (Floors) Two Floors Support System Spouse Does the Patient Have Assistance After Yes Surgery Patient Discharge Plan Description Return Home Comment Pt advised 1-3 day length of stay per surgeon Feels Safe in Current Environment Yes Been Physically Hurt or Threatened By a No Person in Current Environment Do you have thoughts of harming yourself None or others? Are you currently considering suicide? No Do you have a plan to hurt yourself or No Plan others? Do You Have Any Spiritual Beliefs That No May Affect Your HC Choices? Do You Have Any Cultural Practices That No May Affect Your HC Choices? Comment LDS Who Can We Speak to About Patient's Care Family, friends Identifying Code for Release of Patient Declines to issue Information Health Care Proxy/Next of Kin Michael () Health Care Proxy Emergency Contact Name Anusha Burt (Mother) Emergency Contact Advance Directives? No Power of School Nurse No PAC Instructions Bring CPAP/BIPAP,Durable medical equipment,Medications to take/avoid,Nasal antibiotic ,No ETOH/petroleum product on skin DOS,NPO,Post-op transportation,Pre-surgical wash,Sensory aids,Sturdy shoes /comfortable clothes,Do not bring valuables and remove jewelry
--- NOTE | 2023-06-08 16:43 | PM.PNPO.1 ---
Subjective Subjective Interval history: Fatimah is found awake and lying on her right side. She says it is too painful to lie on her back due to the wound site. She denies any fevers or chills. She has required IV pain medication today. She has been able to work with PT and feels she has made good progress ambulating around the floor. Exam Vital Signs (past 8 hours): - 06/08/23 13:32 Temperature 98.9 F Pulse Rate 83 Respiratory Rate 18 Blood Pressure 129/73 Pulse Oximetry 95 Oxygen Flow Rate 0 Oxygen Delivery Method BiPAP Oxygen Flow Rate 0 Narrative Exam Narrative: Dressing looks clean and dry. Able to dorsal and plantar flex at the ankle bilaterally against resistance. Sensation is grossly intact. Const General: cooperative and comfortable Nutritional Appearance: well nourished Orientation: alert and oriented x3 Resp Effort & Inspection: normal respiratory effort and able to speak in complete sentences Objective Labs 06/08/23 05:20 Labs: Laboratory Results - last 24 hr 06/08/23 05:20 Hgb 9.2 L Hct 27.2 L PFSH Medical History Anxiety Depression Spondylolisthesis Lumbar post-laminectomy syndrome Chronic sinusitis Pre-diabetes HLD (hyperlipidemia) BUSTER on CPAP Seasonal allergies Sciatica Surgical History History of orthopedic surgery (2002) History of arthroscopy of left shoulder (2004) Hx of laminectomy (2007) Hx of sinus surgery Hx of bariatric surgery (2003) Hx of cholecystectomy Hx of appendectomy History of surgery (2019) Social History household members: spouse and family Smoking Status: Never smoker alcohol intake: former Assessment & Plan Post-op Postoperative Procedures: Procedures Operation Date: 06/07/23 07:45 Actual Procedure Side Surgeon p L4-5, L5-S1 TLIF with posterior instrumentation -Robot Ari Rodriguez MD Postoperative day: 1 Postoperative plan narrative: Continue PT, multimodal pain control. Expect discharge home tomorrow pending improvement and clearance by PT Quality VTE Deep Vein Thrombosis/Pulmonary Embolism Present on Admission: No
[2023-06-08] MEDS: LOPERAMIDE 2 MG CAPSULE PO (20:14)
[2023-06-08] MEDS: buPROPion XL 150 MG TAB 450 MG PO (20:16)
[2023-06-08] MEDS: SERTRALINE 50 MG TABLET 100 MG PO (20:16)
[2023-06-08 21:07] VITALS: BP 105/48; PULSE 96; RESP 23; TEMP 37.5; O2SAT 95
[2023-06-09] MEDS: OXYCODONE IR 10 MG TABLET PO ×2 (00:10→10:08)
[2023-06-09] MEDS: ACETAMINOPHEN 325 MG TABLET 650 MG PO ×2 (00:10→10:08)
[2023-06-09 01:25] VITALS: BP 111/62; PULSE 80; RESP 19; TEMP 37.2; O2SAT 97
[2023-06-09] MEDS: LOPERAMIDE 2 MG CAPSULE PO (02:58)
[2023-06-09] MEDS: HYDROMORPHONE 0.5 MG INJ IV ×2 (02:58→07:52)
[2023-06-09 03:45] VITALS: BP 105/59; PULSE 65; RESP 18; TEMP 36.9; O2SAT 95
--- NOTE | 2023-06-09 04:33 | PC.NURSE ---
At 0300 patient incontinent of large amount of watery stool and back drsg got soiled. Area cleansed and new gauze drsg applied.
[2023-06-09] MEDS: CHOLESTYRAMINE/ASPARTAME 4 GM PACK PO (07:52)
[2023-06-09 08:00] VITALS: BP 119/50; PULSE 94; RESP 19; TEMP 36.4; O2SAT 96
--- NOTE | 2023-06-09 08:10 | PT.IPTN ---
Current Diagnoses Spondylolisthesis, lumbar region (06/07/23) Postlaminectomy syndrome, not elsewhere classified (06/07/23) Surgery Performed Operation Date: 06/07/23 07:45 Actual Procedures p L4-5, L5-S1 TLIF with posterior instrumentation -Robot - Ari Rodriguez MD Physical Therapy Treatment Note M2 PT-IP Current Condition Start: 06/08/23 10:40 Freq: NEEDED Status: Active Protocol: Document 06/09/23 07:45 SP (Rec: 06/09/23 11:58 SP [id number]) Physical Therapy Current Condition Current Condition Evaluation Date 06/08/23 Treatment Diagnosis s/p lumbar TLIF L4-L5, L5-S1 Onset Date 06/07/23 M3 PT-IP Subjective Start: 06/08/23 10:40 Freq: NEEDED Status: Active Protocol: Document 06/09/23 07:45 SP (Rec: 06/09/23 11:58 SP [id number]) Subjective Physical Therapy Visit Type Type Treatment Note Visit Start Time 07:45 Visit Stop Time 08:10 Total Visit Minutes 25 Number of SUPERVISORY CLERK Visits 2 Physical Therapy Visit Comments Patient Comments Pt agreeable to working with therapy. Therapy Pain Assessment Pain When Pain Assessed At Rest Pain Present Pain Present Pain Reported Location back Intensity 8 Scale Used at rest, 7/10 with mobility Description With Movement Pain Behaviors Facial Grimacing,Guarding, Wincing Pain Management Techniques Distraction,Modification of Treatment,Re-positioning M4 PT-IP Mobility and Gait Start: 06/08/23 10:40 Freq: NEEDED Status: Active Protocol: Document 06/09/23 07:45 SP (Rec: 06/09/23 11:58 SP [id number]) PT-Bed Mobility Assessment Rolling Type of Rolling Log Rolling Level of Assist Moderate Assistance,1 Person Assistance Supine to Sit Supine to Sit Moderate Assistance,1 Person Assistance,Head of Bed Elevated Scooting Scooting to Edge of Bed Moderate Assistance PT-Transfer Assessment Sit to and From Stand Sit to and from Stand Contact Guard Assistance,1 Person Assistance,Use of Upper Extremities Equipment Transfer Assistive Device Gait Belt,Front Wheeled Walker Transfers Transfer Destination Chair Transfer Technique ambulated c/ FWW Transfer Ability Level of Assist Standby Assistance,Contact Guard Assistance,Use of Upper Extremities Comments Mobility Comments Pt required increased assist and tactile cues for LR R, pull form therapist hand Min A , R SL>sit Mod A to pull from therapist hand and trunk righting, cued push from bed RUE. Scoot to EOB Mod A c/ use transfer pad. Pt reports in pain and bed not fully flat at the moment making hard to move this am. STS CGA and gait around room c/ FWW, moderate UE WB on FWW with little unsteady LEs during gait improved stability and TKE strength post cues for core engagement and elongated posturing able to push FWW glide into hallway to nursing station and back to chair in room Min A Sit (pt only used 1 UE to sit down/opp UE on fWW) , approx 100 ft. Cued to fully step back and reach back BUEs to slow descent. SUPERVISORY CLERK recommended FWW use and agreeable to dispense pre DC for added support requires at this time. Gait Assessment Gait Gait Assistance Required: Standby Assistance Distance (Feet) 100 Assistive Devices Assistive Device Gait Belt,Front Wheeled Walker Gait Deviations General Gait Pattern Antalgic,Decreased Stride Length,Decreased Feet Clearance Factors Limiting Gait Function Factors Limiting Gait Function Decreased Activity Tolerance, Decreased Strength,Pain,Poor Safety Awareness Comments Gait Comments Cued core face and elongated posturing with eccentric LE advancement, improved LE stability and decrease UE WB on FWW and antaligic gait less . PT-Balance Assessment Sitting Balance and Reactions Static Sitting Balance Ability Good Dynamic Sitting Balance Ability Fair Standing Balance and Reactions Static Standing Balance Ability Fair Dynamic Standing Balance Ability Fair Device Used FWW M5 PT-IP Objective Assessments Start: 06/08/23 10:40 Freq: NEEDED Status: Active Protocol: Document 06/08/23 10:41 AB (Rec: 06/08/23 11:06 AB [id number]) Orientation Orientation/Cognition Level of Alertness Alert Orientation Name,Age,Birthday,Month,Date, Year,Day of Week,Place, Situation Language Function Ability No Deficits Noted Safety Awareness Understands Safety Issues Memory Description No Deficits Noted Gross Range of Motion Upper Extremity ROM Assessment Within Functional Limits Lower Extremity ROM Assessment Within Functional Limits Strength Upper Extremity Strength Assessment Within Functional Limits Lower Extremity Strength Assessment Within Functional Limits M6 PT-IP Treatment Start: 06/08/23 10:40 Freq: NEEDED Status: Active Protocol: Document 06/09/23 07:45 SP (Rec: 06/09/23 11:58 SP [id number]) Physical Therapy Treatment Education Education Provided Precautions,Weight Bearing Status,Safety M7 PT-IP Assessment and Plan Start: 06/08/23 10:40 Freq: NEEDED Status: Active Protocol: Document 06/09/23 07:45 SP (Rec: 06/09/23 11:58 SP [id number]) PT Summary Assessment and Plan Potential Rehabilitation Potential Good Summary Impairments Pain,ROM,Strength,Balance,Bed Mobility,Transfers,Gait, Activity Tolerance Progress Towards Goals Progressing Toward Goals Assessment Summary Fatimah is making good progress with her mobility this session using FWW. She continues to require ModA for supine to sit, SBA/CGA sit<> stand cues for BUE on chair eccentric sit support. SUPERVISORY CLERK is recommending return home with 24/7 assist when medically cleared. SUPERVISORY CLERK dispensed FWW before more stable support. SUPERVISORY CLERK discussed with pt might benefit from HHPT to progress increase functional mobility strength for to progress decrease need AD and toward PLOF. Goals Bed Mobility Goal Standby Assistance Transfer Goal Independent,Front Wheeled Walker Gait Goal Independent,Front Wheel Walker Gait Distance 100 Other Goals Pt to be able to ascend/ descend 4 steps with right hand rail with SBA to show improving strength and tolerance to activity. Pt to be able to perform bed mobility with independence to show improving level of function. Days to Meet Goals 5 Frequency of Treatment Frequency Of Treatment Twice a Day Treatment Plan Physical Therapy Treatment Plan Bed Mobility Training,Transfer Training,Gait Training, Therapeutic Exercise,Balance Retraining,Post Op Education, Discharge Planning,Hot or Cold Pack,Neuromuscular Re-ed, Coordination Retraining,Manual Therapy Other Recommendations and Next Treatment bed mob, stairs, further Focus distance gait, 5xSTS Precautions Lumbar Precautions Log Roll,No Twisting,Limit Bending,Lifting Restriction of 10 lbs,Gait Belt above Incisional Area Other Precautions good recall 3/3 precautions, vcs for maintaining during LR. Weight Bearing Status Weight Bearing Status Weight Bear as Tolerated Recommendations To Nursing Amount of Assist Needed Standby Assistance,1 Person Assist Discharge Recommendations PT Discharge Recommendations Home with 24/7 Assist Available,Home Health Equipment Needed for Home Before Dispensed FWW. Discharge Transportation Needs at Discharge Private Vehicle
--- NOTE | 2023-06-09 08:15 | CM.DPC ---
DCP Discharge Home Per Ortho PA, pt medically stable to d/c home today with outpt f/u and no identified barriers to discharge. SW spoke to CHILD CARE EDUCATION COORDINATOR who completed final PT this morning and provided pt with additional tips and tricks for bed mobility and recommending safe d/c home with spouse assist and outpt f/u. Plan: Patient to d/c home via spouse POV later this morning and outpt f/u and no further SW needs at this time. Pt looking forward to getting home. PATI Moore
[2023-06-09] MEDS: FENOFIBRATE, MICRONIZED 67 MG CAPSULE 134 MG PO (08:55)
[2023-06-09] MEDS: LORATADINE 10 MG TABLET PO (08:55)
[2023-06-09] MEDS: BUSPIRONE 5 MG TABLET 30 MG PO (08:56)
[2023-06-09] MEDS: ATORVASTATIN 20 MG TABLET 40 MG PO (08:56)
[2023-06-09] MEDS: PROPRANOLOL 10 MG TABLET 40 MG PO (08:56)
[2023-06-09] MEDS: PREGABALIN 50 MG CAPSULE 200 MG PO (08:56)
--- NOTE | 2023-06-09 09:20 | OT.IP.TRT ---
Current Diagnoses Spondylolisthesis, lumbar region (06/07/23) Postlaminectomy syndrome, not elsewhere classified (06/07/23) Surgery Performed Operation Date: 06/07/23 07:45 Actual Procedures p L4-5, L5-S1 TLIF with posterior instrumentation -Robot - Ari Rodriguez MD Occupational Therapy Treatment Note M2 OT-IP Current Condition Start: 06/08/23 12:57 Freq: Status: Active Protocol: Document 06/08/23 11:16 [facility] (Rec: 06/08/23 13:16 [facility] [id number]) Occupational Therapy Current Condition Current Condition Evaluation Date 06/08/23 Treatment Diagnosis S/P L4-5, L5-S1 TLIF Diagnosis Onset Date 06/07/23 Post Operative Precautions Lumbar Precautions Log Roll,No Twisting,Limit Bending,Lifting Restriction of 10 lbs,Gait Belt above Incisional Area M3 OT- IP Subjective and Pain Start: 06/08/23 12:57 Freq: Status: Active Protocol: Document 06/09/23 09:25 [facility] (Rec: 06/09/23 09:33 [facility] [id number]) OT- Subjective Occupational Therapy Visit Type Type Treatment Note Visit Start Time 09:11 Visit Stop Time 09:24 Total Visit Minutes 13 Occupational Therapy Visit Comments Patient Comments Pt just using the bathroom when OT came in to see the pt. Pt not wanting to get dressed and just wanting to get back to bed. Patient/Caregiver Goals TO go home. OT Pain Assessment Pain When Pain Assessed At Rest Pain Present Pain Present Pain Reported Location back Intensity 7 Scale Used Numeric (0 - 10) M4 OT- IP ADL's Start: 06/08/23 12:57 Freq: Status: Active Protocol: Document 06/09/23 09:25 [facility] (Rec: 06/09/23 09:33 [facility] [id number]) OT ADL-Dressing General Eval Lower Body Dressing Ability Minimal Assistance Areas Needing Assistance Underpants/Brief Comments OT Dressing Comments GRISEL to help get the brief up over her hips. Educated before standing up to pull the brief up high so when after she stands, able to reach th brief more easily. OT ADL-Toileting Comments OT Toileting Comments assist for completeness. M5 OT- IP IADL's Start: 06/08/23 12:57 Freq: Status: Active Protocol: Document 06/08/23 11:16 [facility] (Rec: 06/08/23 13:16 [facility] [id number]) OT-Instrumental Activities of Daily Living Deficits IADL Deficits Identified Deficits Home Safety Awareness Awareness of Need for Assistance at Home Good Awareness Ability to Problem Solve Emergency Able to Problem Solve Situations Medication Management Medication Management Comments Pt's to assist her at home. Money Management Money Management Comments Pt's can assist her at home as needed. Meal Preparation Meal Preparation Caregiver Provides Assist Community Health Worker Community Health Worker Caregiver Provides Assist M6 OT- IP Functional Cognition Start: 06/08/23 12:57 Freq: Status: Active Protocol: Document 06/09/23 09:25 [facility] (Rec: 06/09/23 09:33 [facility] [id number]) Cognitive Factors Limiting Selfcare Function Cognitive Comments Cognitive Assessment Comments Pt able to follow commands and needing reassurance for back precautions. M7 OT- IP Mobility and Balance Start: 06/08/23 12:57 Freq: Status: Active Protocol: Document 06/09/23 09:25 [facility] (Rec: 06/09/23 09:33 [facility] [id number]) OT- Bed Mobility Assessment Sit to Supine Sit to Supine Assist Moderate Assistance OT-Transfer Assessment Sit to and From Stand Sit to and from Stand Minimal Assistance,Moderate Assistance Transfers Transfer Ability Contact Guard Assistance Technique Transfer Destination Bed,Toilet Transfer Technique Stand Step Pivot Devices Transfer Assistive Devices Gait Belt,Front Wheeled Walker Comments Mobility Comments MODA to stand from lower surfaces and heavy use of grab bars to stand to FWW. CGA with FWW to get back to bed. MODA to help get her legs back into bed. OT- Balance Assessment Sitting Balance and Reactions Static Sitting Balance Ability Good Dynamic Sitting Balance Ability Fair Standing Balance and Reactions Static Standing Balance Ability Fair Dynamic Standing Balance Ability Fair M9 OT- IP Assessment and Plan Start: 06/08/23 12:57 Freq: Status: Active Protocol: Document 06/09/23 09:25 [facility] (Rec: 06/09/23 09:33 [facility] [id number]) OT Summary Assessment and Plan Potential Rehabilitation Potential Good Analytic Complexity at Evaluation Low Summary OT Impairments Pain,Balance,Functional Mobility,Dressing,Toileting, Bathing,Toilet Transfers, Shower Transfers Progress Towards Goals Progressing Toward Goals,Slow Progress due to Pain Assessment Summary Able to issue pt a FWW. Pt still having lots of pain and looking to go home later with her to assist with her needs. Goals Grooming Goal Independent Dressing Goal Minimal Assistance Toileting Goal Independent Bathing Goal Standby Assistance Toilet Transfer Goal Independent Shower Transfer Goal Standby Assistance Days to Meet Goals 6 Frequency of Treatment Frequency Of Treatment Once a Day Treatment Plan OT Treatment Plan ADL Training,Functional Mobility,Patient/Family Education,Discharge Planning Discharge Recommendations OT Discharge Recommendations Home with Assistance Home Equipment Needs BSC, shower chair, LB dressing equipment, FWW Transportation Needs at Discharge Private Vehicle
[2023-06-09 12:12] VITALS: BP 100/57; PULSE 78; RESP 18; TEMP 36.1; O2SAT 97
--- NOTE | 2023-06-12 09:48 | P.DS_ITS ---
History of Present Illness History of Present Illness Date Patient Seen: 06/09/23 Time Patient Seen: 07:20 Chief complaint: back and leg pain Narrative: Patient is found lying on her side eating breakfast. Says she is trying to control her pain with oral medications. Denies any change with regards to lower extremities. Discharge Providers Provider Date of admission: 06/07/23 05:47 Discharge Date: 06/09/23 Primary care physician: Familia Donaldson MD Consults: 06/07/23 13:18 Consult to Occupational Therapy Evaluate & Treat Comment: Physician Instructions: Evaluate and treat Consult to Physical Therapy Evaluate & Treat Comment: Physician Instructions: Evaluate and Treat 06/09/23 08:22 Consult to Home Health Routine Comment: TLIF, mobility Reason For Exam: Set up FWW for home use Discharge provider: Kit Guo PA-C Summary Hospital Course Discharge Diagnosis: Status post lumbar fusion Hospital Course: Post lumbar fusion protocols Multimodal pain control Physical therapy/OT Status at Discharge Cognitive/behavioral status at discharge: oriented Functional status at discharge: uses cane/walker Time Spent with Patient Time spent: Less than 30 minutes Exam Vital Signs (past 8 hours): Oxygen Delivery Method BiPAP Oxygen Flow Rate 0 Narrative Exam Narrative: Dressing appears to be dry intact no sign of acute infection new line able to dorsal and plantar dorsiflex and plantar flex of the lower extremities bilaterally. Compartments are soft nontender. Objective Labs 06/08/23 05:20 PFSH Medical History Anxiety Depression Spondylolisthesis Lumbar post-laminectomy syndrome Chronic sinusitis Pre-diabetes HLD (hyperlipidemia) BUSTER on CPAP Seasonal allergies Sciatica Surgical History History of orthopedic surgery (2002) History of arthroscopy of left shoulder (2004) Hx of laminectomy (2007) Hx of sinus surgery Hx of bariatric surgery (2003) Hx of cholecystectomy Hx of appendectomy History of surgery (2019) Social History household members: spouse and family Smoking Status: Never smoker alcohol intake: former Discharge Assessment & Plan Assessment and Plan Assessment: 1.? Status post L4-5, L5-S1 TLIF 2.??? L4-5, L5-S1 recurrent disc herniation 3. L4-5, L5-S1 post laminectomy with residual spinal stenosis 4. L4-5, L5-S1 spondylolisthesis 5. Morbid obesity Plan of Treatment: 1. Discharge home 06/09/2023. 2. Multimodal pain control 3. Follow up in clinic in 2weeks for wound check. Discharge Plan Discharge Plan Patient Disposition: Home Discharge orders & Medications Prescriptions: New acetaminophen 325 mg Tablet 650 mg PO Q4H PRN (Reason: Fever/Mild Pain (1-3)) Qty: 60 0RF hydroxyzine pamoate 25 mg Capsule 25 mg PO Q8HR Qty: 40 0RF oxycodone 10 mg Tablet 10 mg PO Q4HR Qty: 40 0RF bisacodyl 5 mg tablet 5 mg PO BEDTIME PRN (Reason: constipation) Qty: 10 0RF Continued cetirizine [Zyrtec] 10 mg Tablet 10 mg PO DAILY tizanidine 4 mg Tablet 4 mg PO TID sertraline 100 mg Tablet 100 mg PO BEDTIME propranolol 40 mg Tablet 40 mg PO BID buspirone 30 mg Tablet 30 mg PO BID fenofibrate 160 mg Tablet 160 mg PO DAILY pregabalin 200 mg Capsule 200 mg PO TID Cholestyramine Light 4 gram Powder 4 g PO BID Rx Instructions: administer w/meal; avoid other meds within 1hr before or 4-6hr after dose bupropion HCl 450 mg Tablet Extended Release 24 Hr 450 mg PO BEDTIME atorvastatin 40 mg tablet 40 mg PO DAILY Discontinued acetaminophen 500 mg Tablet 1,000 mg PO TID-QID Follow up/Referrals: Ari Rodriguez MD [Physician] - As previously scheduled (Follow up with Dr Rodriguez on 06/22/2023 @ 1:30 pm at [facility] in [place].) Familia Donaldson MD [Primary Care Provider] - Diet/Activity/Treatments Diet: Diet as Tolerated Activity: No deep bending or twisting at the waist. No lifting more than 10 pounds. Cold/Heat Therapy: Heating pad to low back as needed for pain. Skin/Wound/Dressing Care Report to your healthcare provider any signs of infection, such as:: chills, fever, night sweats, unusual drainage and unusual redness Dressing: May shower; keep dressing as dry as possible. If dressing becomes wet or dirty, remove and replace with clean, dry gauze. No bathing or otherwise soaking incisions. Do not apply any creams, lotions, or ointments to incisions. Visit Report/Discharge Packet Instructions: DI for Prescription Opioid Use, DI for Transforaminal Lumbar Interbody Fusion Stand Alone Forms: Patient Portal/API, Stroke Signs & Symptoms, Surgery Discharge Discharge Data Primary Care Provider: Familia Donaldson [facility]TE Deep Vein Thrombosis/Pulmonary Embolism Present on Admission: No
== END 2023-06-09 12:32 | disposition home or self-care (01) | DRG 454 ==
PROVIDERS: Admitting Provider Orthopaedic Surgery Orthopaedic Surgery of the Spine; PCP Family Medicine; Referring Provider Orthopaedic Surgery Orthopaedic Surgery of the Spine; Visit Provider Orthopaedic Surgery Orthopaedic Surgery of the Spine
PROC: 0SG00AJ Fusion of Lumbar Vertebral Joint with Interbody Fusion Device, Posterior Approach, Anterior Column, Open Approach (ICD-10-PCS; principal; 2023-06-07 07:45)
DX: M51.26 Other intervertebral disc displacement, lumbar region (principal); Z68.41 Body mass index [BMI] 40.0-44.9, adult; M43.16 Spondylolisthesis, lumbar region; E66.01 Morbid (severe) obesity due to excess calories; M96.1 Postlaminectomy syndrome, not elsewhere classified; M51.37 Other intervertebral disc degeneration, lumbosacral region; M48.07 Spinal stenosis, lumbosacral region; M51.27 Other intervertebral disc displacement, lumbosacral region; M48.061 Spinal stenosis, lumbar region without neurogenic claudication; M43.17 Spondylolisthesis, lumbosacral region; F32.A Depression, unspecified; E78.5 Hyperlipidemia, unspecified
CPT/HCPCS: 36415; 72100; 76000; 85014; 85018; 97116; 97161; 97165; 97530; 97535; C1713; C1831; C9290; J0171; J0690; J1100; J1170; J2250; J2405; J2704; J3010